=== PATIENT | female | born 1950 | race Caucasian/White ===

== ENCOUNTER 2018-03-16 09:43 | Inpatient (IN) | payer OTHER ==
[~2018-03-16] VITALS: Ht 165.1 cm; Wt 95.7 kg
[~2018-03-16 09:43] MED LIST: Ascorbic Acid,Ester- PO; DILAUDID2 MG PO; DULCOLAX5 MG PO; GLUCOPHAGE500 MG PO; LEVEMIR FL100 UNIT/1 SC; Levothroid,Synthroid PO; Milk Of Magnesia,MOM PO; NEURONTIN300 MG PO; SENOKOT S,PE1 TABLET PO; Tylenol Regular Stre PO; Zestril,Prinivil PO; Zocor PO; metformin hcl; synthroid
[2018-03-16 12:05] LABS: BASOPHIL (%) 0.4 % (0-1); EOSINOPHIL (%) 2.1 % (0-5); EOSINOPHIL COUNT 0.2 K/uL (0-0.3); HEMATOCRIT 41.2 % (36.0-46.0); HEMOGLOBIN 13.7 G/DL (11.9-15.5); IMMATURE GRANULOCYTE (%) 0.1 % (0.0-0.7); LYMPHOCYTE (%) 26.8 % (15-42); MCH 30.2 PG (29.0-34.0); MCHC 33.3 G/DL (30.0-36.0); MCV 90.9 FL (83-99); MONOCYTE (%) 9.2 % (3-12); MONOCYTE COUNT 0.7 K/uL (0-0.8); NEUTROPHIL (%) 61.4 % (45-76); NEUTROPHIL COUNT 4.6 K/uL (1.8-6.4); PLATELET COUNT 308 K/uL (156-360); RBC DIS.WIDTH-CV 12.3 % (11.8-14.6); RBC DIS.WIDTH-SD 41.2 % (39-53); RED BLOOD COUNT 4.53 M/uL (3.80-5.20); WHITE BLOOD COUNT 7.5 K/uL (4.1-10.2)
[2018-03-16 12:20] LABS: APPEARANCE CLOUDY ((CLEAR)); BILIRUBIN NEGATIVE; BLOOD SMALL; COLOR YELLOW ((YELLOW)); GLUCOSE (STRIP) >=500; KETONES NEGATIVE; LEUKOCYTES LARGE; NITRITE POSITIVE; PROTEIN (STRIP) 100; SPECIFIC GRAVITY 1.014 (1.000-1.030)
[2018-03-16 12:20] LABS: CHLORIDE 98 mEq/L (99-109); POTASSIUM 4.7 mEq/L (3.7-5.4); SODIUM 139 mEq/L (136-147)
[2018-03-16 12:21] LABS: GLUCOSE 287 mg/dL (70-99)
[2018-03-16 12:25] LABS: CREATININE 1.2 mg/dL (0.6-1.3); GFR ESTIMATE (CALCULATED) 47 mL/min/
[2018-03-16 12:26] LABS: UREA NITROGEN (BUN) 18 mg/dL (9-23)
[2018-03-16 12:54] LABS: RED BLOOD CELLS RARE /HPF (0-5)
[2018-03-16 12:55] LABS: BACTERIA RARE /HPF; EPITHELIAL CELLS RARE /HPF; MUCUS NONE SEEN /LPF; UCUL ADDED? YES; WHITE BLOOD CELLS TNTC /HPF (0-5)
[2018-03-16] MEDS ORDERED: LO-DOSE ASPIRIN81 M2 PO (16:01)
[2018-03-16 16:47] VITALS: BP 161/69
[2018-03-16 19:27] VITALS: BP 154/72
[2018-03-16 23:17] VITALS: BP 131/62
[2018-03-17 03:22] VITALS: BP 147/69
[2018-03-17 07:39] VITALS: BP 143/68
[2018-03-17 16:33] VITALS: BP 153/74
[2018-03-18 00:03] VITALS: BP 124/58
[2018-03-18 04:28] LABS: VANCOMYCIN, TROUGH 9.4 MCG/ML (10-20)
[2018-03-18 08:17] VITALS: BP 124/59
[2018-03-18 16:09] VITALS: BP 127/73
[2018-03-18 23:48] VITALS: BP 113/59
[2018-03-19 05:59] LABS: BASOPHIL (%) 0.4 % (0-1); EOSINOPHIL (%) 0.7 % (0-5); EOSINOPHIL COUNT 0.1 K/uL (0-0.3); HEMATOCRIT 34.7 % (36.0-46.0); IMMATURE GRANULOCYTE (%) 0.3 % (0.0-0.7); LYMPHOCYTE (%) 23.9 % (15-42); LYMPHOCYTE COUNT 2.3 K/uL (1.0-2.8); MCH 29.6 PG (29.0-34.0); MCHC 32.6 G/DL (30.0-36.0); MCV 90.8 FL (83-99); MONOCYTE (%) 5.8 % (3-12); MONOCYTE COUNT 0.6 K/uL (0-0.8); NEUTROPHIL (%) 68.9 % (45-76); NEUTROPHIL COUNT 6.6 K/uL (1.8-6.4); PLATELET COUNT 299 K/uL (156-360); RBC DIS.WIDTH-CV 12.1 % (11.8-14.6); RBC DIS.WIDTH-SD 40.6 % (39-53); RED BLOOD COUNT 3.82 M/uL (3.80-5.20); WHITE BLOOD COUNT 9.6 K/uL (4.1-10.2)
[2018-03-19 06:14] LABS: HEMOGLOBIN 11.3 G/DL (11.9-15.5)
[2018-03-19 06:31] LABS: ALKALINE PHOSPHATASE 59 IU/L (3-129); ALT (GPT) 23 IU/L (3-49); AST (GOT) 162 IU/L (2-34); CHLORIDE 100 MEQ/L (99-109); CREATININE 1.1 MG/DL (0.6-1.3); GFR ESTIMATE (CALCULATED) 52 mL/min/; GLUCOSE 301 mg/dL (70-99); POTASSIUM 5.1 MEQ/L (3.7-5.4); SODIUM 135 MEQ/L (136-147); TOTAL BILIRUBIN 0.4 MG/DL (0.0-1.0); UREA NITROGEN (BUN) 24 mg/dL (9-23)
[2018-03-19 08:04] VITALS: BP 126/73
[2018-03-19 15:32] VITALS: BP 100/56
[2018-03-19 23:12] VITALS: BP 101/55
[2018-03-20 05:31] LABS: HEMATOCRIT 34.9 % (36.0-46.0); HEMOGLOBIN 11.3 G/DL (11.9-15.5); MCH 29.7 PG (29.0-34.0); MCHC 32.4 G/DL (30.0-36.0); MCV 91.6 FL (83-99); PLATELET COUNT 318 K/uL (156-360); RBC DIS.WIDTH-CV 12.5 % (11.8-14.6); RBC DIS.WIDTH-SD 41.8 % (39-53); RED BLOOD COUNT 3.81 M/uL (3.80-5.20); WHITE BLOOD COUNT 13.6 K/uL (4.1-10.2)
[2018-03-20 06:00] LABS: CHLORIDE 96 MEQ/L (99-109); CREATININE 1.2 MG/DL (0.6-1.3); GFR ESTIMATE (CALCULATED) 47 mL/min/; GLUCOSE 263 mg/dL (70-99); POTASSIUM 5.8 MEQ/L (3.7-5.4); SODIUM 129 MEQ/L (136-147); UREA NITROGEN (BUN) 30 mg/dL (9-23)
[2018-03-20 08:06] VITALS: BP 124/71
[2018-03-20 15:59] VITALS: BP 119/58
[2018-03-20 23:17] VITALS: BP 96/59
[2018-03-21 05:29] LABS: HEMATOCRIT 34.2 % (36.0-46.0); HEMOGLOBIN 11.1 G/DL (11.9-15.5); MCH 29.7 PG (29.0-34.0); MCHC 32.5 G/DL (30.0-36.0); MCV 91.4 FL (83-99); PLATELET COUNT 312 K/uL (156-360); RBC DIS.WIDTH-CV 12.8 % (11.8-14.6); RBC DIS.WIDTH-SD 42.1 % (39-53); RED BLOOD COUNT 3.74 M/uL (3.80-5.20); WHITE BLOOD COUNT 13.9 K/uL (4.1-10.2)
[2018-03-21 06:10] LABS: ALBUMIN 3.5 G/DL (3.2-4.8); ALKALINE PHOSPHATASE 74 IU/L (3-129); CHLORIDE 95 MEQ/L (99-109); GLUCOSE 208 mg/dL (70-99); SODIUM 128 MEQ/L (136-147)
[2018-03-21 06:15] LABS: ALT (GPT) 198 IU/L (3-49); AST (GOT) 358 IU/L (2-34); CREATININE 1.9 MG/DL (0.6-1.3); GFR ESTIMATE (CALCULATED) 28 mL/min/; TOTAL BILIRUBIN 0.6 MG/DL (0.0-1.0); TOTAL PROTEIN 7.1 G/DL (6.4-8.3); UREA NITROGEN (BUN) 58 mg/dL (9-23)
[2018-03-21 07:40] VITALS: BP 114/71
[2018-03-21 15:37] VITALS: BP 117/70
[2018-03-22 00:13] VITALS: BP 120/70
[2018-03-22 05:50] LABS: HEMATOCRIT 32.7 % (36.0-46.0); HEMOGLOBIN 10.7 G/DL (11.9-15.5); MCH 29.9 PG (29.0-34.0); MCHC 32.7 G/DL (30.0-36.0); MCV 91.3 FL (83-99); PLATELET COUNT 308 K/uL (156-360); RED BLOOD COUNT 3.58 M/uL (3.80-5.20); WHITE BLOOD COUNT 11.8 K/uL (4.1-10.2)
[2018-03-22 06:18] LABS: ALKALINE PHOSPHATASE 71 IU/L (3-129); ALT (GPT) 174 IU/L (3-49); CHLORIDE 96 MEQ/L (99-109); CREATININE 1.8 MG/DL (0.6-1.3); GFR ESTIMATE (CALCULATED) 30 mL/min/; GLUCOSE 154 mg/dL (70-99); SODIUM 131 MEQ/L (136-147); TOTAL BILIRUBIN 0.7 MG/DL (0.0-1.0); TOTAL PROTEIN 6.4 G/DL (6.4-8.3); UREA NITROGEN (BUN) 66 mg/dL (9-23)
[2018-03-22 06:19] LABS: AST (GOT) 174 IU/L (2-34)
[2018-03-22 07:46] VITALS: BP 115/68
[2018-03-22 11:29] VITALS: BP 125/74
[2018-03-22 15:17] VITALS: BP 112/56
[2018-03-22 20:05] VITALS: BP 110/69
[2018-03-22 23:53] VITALS: BP 101/64
[2018-03-23 05:31] LABS: BASOPHIL (%) 0.2 % (0-1); EOSINOPHIL (%) 0 % (0-5); HEMATOCRIT 33.9 % (36.0-46.0); HEMOGLOBIN 11.2 G/DL (11.9-15.5); IMMATURE GRANULOCYTE (%) 0.6 % (0.0-0.7); LYMPHOCYTE (%) 14.4 % (15-42); LYMPHOCYTE COUNT 2.1 K/uL (1.0-2.8); MCH 29.9 PG (29.0-34.0); MCV 90.6 FL (83-99); MONOCYTE (%) 14.3 % (3-12); MONOCYTE COUNT 2.1 K/uL (0-0.8); NEUTROPHIL (%) 70.5 % (45-76); NEUTROPHIL COUNT 10.2 K/uL (1.8-6.4); PLATELET COUNT 340 K/uL (156-360); RBC DIS.WIDTH-SD 42.8 % (39-53); RED BLOOD COUNT 3.74 M/uL (3.80-5.20); WHITE BLOOD COUNT 14.5 K/uL (4.1-10.2)
[2018-03-23 06:11] LABS: ALBUMIN 3.2 G/DL (3.2-4.8); ALKALINE PHOSPHATASE 82 IU/L (3-129); ALT (GPT) 128 IU/L (3-49); AST (GOT) 98 IU/L (2-34); CHLORIDE 94 MEQ/L (99-109); CREATININE 1.8 MG/DL (0.6-1.3); GFR ESTIMATE (CALCULATED) 30 mL/min/; GLUCOSE 179 mg/dL (70-99); POTASSIUM 5.5 MEQ/L (3.7-5.4); SODIUM 129 MEQ/L (136-147); TOTAL PROTEIN 6.2 G/DL (6.4-8.3); UREA NITROGEN (BUN) 77 mg/dL (9-23)
[2018-03-23 07:35] VITALS: BP 118/62
[2018-03-23] MEDS ORDERED: GABAPENTIN300 MG PO (13:10)
[2018-03-23] MEDS ORDERED: LEVOTHYROXINE100 MCG PO (13:11)
[2018-03-23] MEDS ORDERED: SANTYL30 GM TP (13:11)
[2018-03-23] MEDS ORDERED: NOVOLOG 10100 UNITS/ SC (13:13)
[2018-03-23] MEDS ORDERED: CEFADROXIL500 MG PO (13:14)
[2018-03-23 16:21] VITALS: BP 90/53
== END 2018-03-23 18:04 | disposition home health service (06) | DRG 638 ==
LOC: EME 09:43 → EDOF 14:07 → 3EAST 14:07 → ENRESERV 14:56 → 3EAST 16:08
PROVIDERS: Emergency Medicine; Family Medicine; Internal Medicine; Internal Medicine Gastroenterology
DX: E11.621 Type 2 diabetes mellitus with foot ulcer (principal); L97.528 Non-pressure chronic ulcer of other part of left foot with other specified severity; E11.628 Type 2 diabetes mellitus with other skin complications; L03.116 Cellulitis of left lower limb; L97.428 Non-pressure chronic ulcer of left heel and midfoot with other specified severity; N39.0 Urinary tract infection, site not specified; B96.20 Unspecified Escherichia coli [E. coli] as the cause of diseases classified elsewhere; K80.10 Calculus of gallbladder with chronic cholecystitis without obstruction; E87.1 Hypo-osmolality and hyponatremia; E86.1 Hypovolemia; R79.89 Other specified abnormal findings of blood chemistry; R18.8 Other ascites; E11.51 Type 2 diabetes mellitus with diabetic peripheral angiopathy without gangrene; E11.65 Type 2 diabetes mellitus with hyperglycemia; I10 Essential (primary) hypertension; E66.9 Obesity, unspecified; Z68.35 Body mass index [BMI] 35.0-35.9, adult; Z89.511 Acquired absence of right leg below knee; Z99.3 Dependence on wheelchair; Z80.0 Family history of malignant neoplasm of digestive organs; Z82.49 Family history of ischemic heart disease and other diseases of the circulatory system
CPT/HCPCS: 71045; 73630; 73700; 73720; 74150; 76705; 80048; 80053; 80202; 81003; 82565; 82948; 85025; 85027; 87040; 87077; 87086; 87186; 93005; 93926; 93971; 99281; 99285; A6260; J0692; J1644; J1815; J3370